=== PATIENT | female | born 1980 | race Caucasian/White ===

== ENCOUNTER 2022-11-25 10:45 | Emergency (ER) | payer MEDICAID ==
[~2022-11-25] VITALS: Ht 170.2 cm; Wt 68.0 kg
[2022-11-25] MEDS ORDERED: IBUP-1957 PO (10:58)
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
--- NOTE | 2022-11-25 11:13 | NUR ---
Patient discharged to home in stable condition. Written and verbal after care instructions given. Patient verbalizes understanding of instruction.
[2022-11-25 11:14] VITALS: BP 107/70
== END 2022-11-25 11:14 | disposition home or self-care (01) ==
LOC: ER 10:49
DX: M54.9 Dorsalgia, unspecified (principal); Z79.1 Long term (current) use of non-steroidal anti-inflammatories (NSAID); V89.2XXA Person injured in unspecified motor-vehicle accident, traffic, initial encounter; Y93.89 Activity, other specified; Y92.89 Other specified places as the place of occurrence of the external cause; Y99.8 Other external cause status